=== PATIENT | male | born 2000 | race Caucasian/White ===

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

== ENCOUNTER 2020-04-15 21:17 | Emergency (ER) | payer SELFPAY ==
[2020-04-15] MEDS ORDERED: DEXAMETHASONE SOD PHOS INJ 10 MG/1 ML VIAL IM ONE (23:12)
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
[2020-04-16 00:10] LABS: A TYPE INFLUENZA AG NEGATIVE (NEGATIVE); B INFLUENZA AG NEGATIVE (NEGATIVE)
--- NOTE | 2020-04-16 01:02 | RADIOLOGY REPORT (SQ) ---
EXAM DESCRIPTION: XR CHEST 1 VIEW COMPLETED DATE/TME: 04/16/2020 00:21 CLINICAL HISTORY: 20 years, Male, cough COMPARISON: 10/08/2017 chest NUMBER OF VIEWS: 1 TECHNIQUE: Portable chest LIMITATIONS: None. FINDINGS: Heart size is normal. Lungs are clear. No pneumothorax IMPRESSION: No acute cardiopulmonary process copyright 2010 [email or web address]- All Rights Reserved
--- NOTE | 2020-04-16 01:05 | ER Document Report ---
ED General - General Chief Complaint: Sore Throat Stated Complaint: SORE THROAT/FEVER/FATIGUE Time Seen by Provider: 04/15/20 23:07 TRAVEL OUTSIDE OF THE [place] IN LAST 30 DAYS: No - HPI Notes: Patient is a 20-year-old male with a past medical history of asthma not on any medications who presents with flu-like symptoms. Patient states he has had fevers with a T-max of 103. He complains of headaches, cough that is nonproductive, diarrhea. He states he tested positive for Covid 2 months ago but was asymptomatic. His symptoms started 2 days ago. He has been taking Tylenol and ibuprofen. He denies any shortness of breath. No chest pain. He mentioned that he has a sore throat. He states that he has had positive Covid contacts at work as many of his coworkers have been sick with it and sent home. - Related Data Allergies/Adverse Reactions: No Known Allergies Allergy (Verified 12/14/17 14:54) Past Medical History - General Information source: Patient - Social History Smoking Status: Former Smoker Chew tobacco use (# tins/day): No Frequency of alcohol use: Occasional Drug Abuse: None Family History: Reviewed & Not Pertinent, Arthritis, CAD, COPD, CVA, DM, Hyperlipidemia, Hypertension, Malignancy, Thyroid Disfunction - Past Medical History Cardiac Medical History: Reports: Hx Hypertension Pulmonary Medical History: Reports: Hx Asthma - DX AT AGE 4, Hx Pneumonia, Hx Sleep Apnea Neurological Medical History: Reports: Hx Migraine Renal/ Medical History: Denies: Hx Peritoneal Dialysis GI Medical History: Reports: Hx Gastroesophageal Reflux Disease Musculoskeletal Medical History: Reports Hx Musculoskeletal Trauma Skin Medical History: Reports Hx Eczema Past Surgical History: Reports: Hx Oral Surgery - Immunizations Immunizations up to date: Yes Hx Diphtheria, Pertussis, Tetanus Vaccination: Yes Review of Systems - Review of Systems Notes: CONSTITUTIONAL: No fatigue or weight loss. Positive for fever. SKIN: No rash. HENT: Positive for ear pain and sore throat. EYES: No recent vision problems or eye pain. CARDIOVASCULAR: No chest pain or edema. RESPIRATORY: Positive for dry cough. GASTROINTESTINAL: No abdominal pain, nausea, vomiting, bloody stools. Positive for diarrhea. GENITOURINARY: No dysuria. MUSCULOSKELETAL: No joint pain or swelling. LYMPHATIC: No swollen glands. NEUROLOGIC: No seizures. No focal weakness or sensory changes. Positive for headaches. HEMATOLOGIC: No unusual bruising or bleeding. PSYCHIATRIC: No depression or anxiety. Physical Exam - Vital signs Vitals: Temp Pulse Resp BP Pulse Ox 99 F 97 17 161/91 H 98 04/15/20 21:39 04/15/20 21:39 04/15/20 21:39 04/15/20 21:39 04/15/20 21:39 - General General appearance: Appears well Notes: VITAL SIGNS: Within normal limits. GENERAL: No acute distress, non-toxic appearance. HEAD: Normal with no signs of head trauma. EYES: Conjunctiva normal, no discharge. EARS: Hearing grossly intact. Tympanic membranes normal bilaterally without signs of infection. NOSE: Normal. THROAT: Mild erythema to posterior pharynx. NECK: Normal range of motion, no tenderness, supple, no lymphadenopathy, No adenopathy, no JVD. CHEST: Clear breath sounds bilaterally. No wheezes, rales, or rhonchi. CARDIAC: Regular rate and rhythm. VASCULAR: No Edema. ABDOMEN: Normal and soft with no tenderness MUSCULOSKELETAL: Good range of motion of all major joints. Extremities without clubbing, cyanosis or edema. NEUROLOGICAL: Alert and oriented x 3. No focal sensory or strength deficits. Speech normal. Follows commands appropriately. PSYCHIATRIC: Normal Affect, judgement and mood. SKIN: Normal appearance with no rashes or lesions. Course - Re-evaluation Re-evalutation: 04/16/20 01:53 Patient appears well on exam. He is drinking juice in the room. I discussed all results with him. Patient was told he needs to self isolate until he is called with a negative result for the Covid test. Patient states he has a rapid Covid test already scheduled for Friday. He was instructed to stay hydrated and get rest. Patient was given strict return precautions. - Vital Signs Vital signs: Temp Pulse Resp BP Pulse Ox 99.4 F 100 20 148/84 H 97 04/16/20 01:20 04/16/20 01:20 04/16/20 01:20 04/16/20 01:20 04/16/20 01:20 - Laboratory Results Critical Laboratory Results Reviewed: No Critical Results - Radiology Results Critical Radiology Results Reviewed: No Critical Results Discharge - Discharge Clinical Impression: Cough, Sore throat, Suspected COVID-19 virus infection Condition: Stable Disposition: HOME, SELF-CARE Instructions: COVID-19 Guidance for Persons Under Investigation, Sore Throat ([facility]) Additional Instructions: You have been tested for COVID-19. You must self isolate until you are called with a negative result. Please return to the ER immediately for any shortness of breath or worsening symptoms.
[2020-04-16 01:20] VITALS: BP 148/84
== END 2020-04-16 01:21 | disposition home or self-care (01) ==
LOC: ER 21:17
DX: J02.9 Acute pharyngitis, unspecified (principal); R05 Cough; R50.9 Fever, unspecified; R53.83 Other fatigue; R51.9 Headache, unspecified; R19.7 Diarrhea, unspecified; Z87.891 Personal history of nicotine dependence; I10 Essential (primary) hypertension; J45.909 Unspecified asthma, uncomplicated; Z20.828 Contact with and (suspected) exposure to other viral communicable diseases
CPT/HCPCS: 99284; 96372; 87070; 87880; 87635; 87077; 87804; 71045; J1100; C9803